=== PATIENT | male | born 1950 | race Caucasian/White ===

== ENCOUNTER 2020-10-10 13:30 | Emergency (ER) | payer OTHER, SELFPAY ==
[2020-10-10] VITALS (8 sets, daily range): BP systolic 112–132; BP diastolic 77–88; PULSE 60–76; RESP 16–22; TEMP 36.6; O2SAT 98–100; BMI 23.0
--- NOTE | 2020-10-10 13:54 | DI.RAD.S_ITS ---
PROCEDURE: XR CHEST 1V INDICATIONS: chest pain TECHNIQUE: One view of the chest was acquired. COMPARISON: None. FINDINGS: Surgical changes and devices: None. Lungs and pleura: Lungs are clear. No pleural effusions or pneumothorax. Mediastinum: Mediastinal contours appear normal. Heart size is normal. Bones and chest wall: No suspicious bony lesions. Overlying soft tissues appear unremarkable. IMPRESSION: No acute pulmonary process. Dictated by: Kandi Paez M.D. on 10/10/2020 at 14:55 Approved by: Kandi Paez M.D. on 10/10/2020 at 14:55
[2020-10-10 14:31] LABS: Add Manual Diff / Slide Review NO; Basophils Absolute Auto 0 /uL (0-100); Basophils Percent Auto 0.5 % (0-2); Eosinophils Absolute Auto 100 /uL (0-450); Eosinophils Percent Auto 1.3 % (2-4); Hematocrit 46.9 % (41-53); Hemoglobin 16.3 g/dL (13.5-17.5); Lymphocytes Absolute Auto 1000 /uL (1100-4500); Lymphocytes Percent Auto 13.5 % (25-40); Mean Corpuscular HGB Conc 34.7 % (30-36); Mean Corpuscular Hemoglobin 32.4 PG (26-34); Mean Corpuscular Volume 93.3 fL (80-100); Monocytes Absolute Auto 300 /uL (0-900); Monocytes Percent Auto 4.8 % (3-14); Neutrophils Absolute Auto 5800 /uL (1500-7000); Neutrophils Percent Auto 79.9 % (50-75); Platelet Count 254 X10^3/uL (150-400); Red Blood Cell Count 5.02 X10^6/uL (4.5-5.9); White Blood Cell Count 7.3 X10^3/uL (4.5-11.0)
[2020-10-10 14:38] LABS: Prothrombin Time 11.7 SECONDS (10.1-12.7)
[2020-10-10 14:40] LABS: PTT Partial Thromboplastin Tim 32 SECONDS (26.4-36.2)
[2020-10-10 14:44] LABS: Alanine Aminotransferase 17 IU/L (<50); Albumin 4.5 g/dL (3.5-5.0); Albumin Globulin Ratio 1.8 (1.0-2.8); Alkaline Phosphatase 57 U/L (38-126); Aspartate Aminotransferase 29 IU/L (17-59); BUN Creatinine Ratio 20.7 (6-22); Bilirubin Total 0.5 mg/dL (0.2-1.3); Blood Urea Nitrogen 19 mg/dL (9-20); Calcium 9.7 mg/dL (8.4-10.2); Carbon Dioxide 25 mmol/L (22-32); Chloride 104 mmol/L (98-107); Creatine Kinase 75 U/L (55-170); Estimated Glomerular Filt Rate > 60.0 mL/min (>60); Globulin 2.5 g/dL (1.7-4.1); Glucose 98 mg/dL (80-110); HEMOLYSIS 34 (0-50); Lipase 144 U/L (23-300); Sodium 138 mmol/L (137-145)
[2020-10-10 14:56] LABS: Troponin I < 0.012 ng/mL (0.01-0.034)
--- NOTE | 2020-10-10 15:02 | DI.CT.S_ITS ---
PROCEDURE: CT HEAD/BRAIN WO CON INDICATIONS: syncope, fall on face TECHNIQUE: Noncontrast 4.5 mm thick angled axial sections acquired from the foramen magnum to the vertex, with coronal and sagittal reformats. For radiation dose reduction, the following was used: automated exposure control, adjustment of mA and/or kV according to patient size. COMPARISON: [facility], CT, CT FACIAL BONES WO CON, 10/10/2020, 15:05. FINDINGS: Image quality: Excellent. CSF spaces: Basal cisterns are patent. No extra-axial fluid collections. The ventricles are symmetric in size and shape. Brain: No intracranial bleeds or masses. There is cerebral volume loss for age, with resultant ventricular and sulcal prominence. There are periventricular and deep white matter chronic small vessel ischemic changes. There is intracranial internal carotid artery atherosclerosis. Skull and face: Calvarium and visualized facial bones appear intact, without suspicious lesions. Sinuses: Visualized sinuses and mastoids are clear. IMPRESSION: 1. No acute intracranial process. 2. Mild atrophy and chronic microvascular ischemic changes. Dictated by: Kandi Paez M.D. on 10/10/2020 at 15:26 Approved by: Kandi Paez M.D. on 10/10/2020 at 15:27
--- NOTE | 2020-10-10 15:02 | DI.CT.S_ITS ---
PROCEDURE: CT FACIAL BONES WO CON INDICATIONS: syncope, fall on face TECHNIQUE: Noncontrast 2.5 mm thick axial images acquired from the mandible through the frontal sinuses, with coronal and sagittal reformatting. For radiation dose reduction, the following was used: automated exposure control, adjustment of mA and/or kV according to patient size. COMPARISON: [facility], CT, CT HEAD/BRAIN WO CON, 10/10/2020, 15:05. FINDINGS: Image quality: Excellent. Bones and teeth: Orbital mo are intact. Sinus mo show no fracture or deformity. Nasal bones and septum are intact. Visualized portions of the mandible demonstrate no fractures or subluxation. Zygomatic arches are intact. Pterygoid plates are intact. Visualized portions of the skull base and auditory canals are intact. Sinuses: Paranasal sinuses are aerated, without fluid levels, mucosal thickening, or mucoceles. Mastoid air cells are aerated. Soft tissues: No edema, masses, or fluid collections. No enlarged lymph nodes. No soft tissue lacerations or debris. Vascular: Visualized vascular structures appear normal in the absence of contrast. Bony vascular foramina and canals are intact. IMPRESSION: No visualized fracture. Dictated by: Kandi Paez M.D. on 10/10/2020 at 15:27 Approved by: Kandi Paez M.D. on 10/10/2020 at 15:28
--- NOTE | 2020-10-10 15:49 | ED.SYNCOPE ---
HPI - Syncope General Chief Complaint: Syncope Stated Complaint: [place] Time Seen by Provider: 10/10/20 15:48 Source: patient and family () Mode of arrival: Ambulatory Limitations: no limitations History of Present Illness HPI narrative: This is a 69-year-old male who was getting out of his vehicle when he was walking around the car as he was about to go up on the curb. He did not visualize the curb and tripped and fell directly on his face. Patient was not able to soften his fall with his hands. He fell directly on his knees and face. He states his tooth is ?legally?. Patient and his for both present. They were actively talking during the event. states he did have a loss of consciousness but was repetitive and seemed somewhat confused immediately afterwards. His mental status has been improved and he seems back to his normal self. Patient denies any significant neck or back pain. He had headache initially but that has resolved. He has not any vision changes. No nausea or vomiting. No chest pain or shortness of breath. He appreciates abrasions on both knees, his cheek as well some cuts to his lip. Patient has not had any bowel or bladder incontinence. No numbness tingling or weakness of his extremities. He states he had a head injury about 4 years ago, he was never evaluated for this but had persistent cognitive changes afterwards. He is supposed to see Neurology in follow-up. He does not take any medications regularly. He denies any prior surgeries besides hernia repair. No allergies to medications. No tobacco alcohol or illicit. He has not had any EtOH today. Patient lives at [place]. He is accompanied by his who is a dental hygienist. She states she will help him follow up with a dentist this weekend. He believes his tetanus is up-to-date, he is also due to have his COVID vaccination next Monday. They elect not to have his tetanus updated today and will touch base with his primary care to verify his tetanus status on Monday. Related Data Allergies Allergy/AdvReac Type Severity Reaction Status Date / Time No Known Drug Allergies Allergy Verified 10/10/20 14:55 Review of Systems Review of Systems ROS Unobtainable: All systems reviewed & are unremarkable except as noted in HPI and below Patient History Surgical History (Updated 10/10/20 @ 16:15 by Brandie Freeman DO) H/O hernia repair Social History Smoking Status: Never smoker Smoking Status: Never smoker Substance Use Type: does not use Exam Narrative Exam Narrative: GEN:Patient appears in mild distress. HEAD: No evidence of trauma, no raccoon/Dunham sign. NECK: Nontender, painless range of motion, trachea midline Negative Nexus criteria, there is no mild line tenderness, distracting injury, altered mental status, neuro deficit, recent EtOH. EYES: PERRLA, EOMI ENT: External inspection normal, trachea is midline, TM's are normal no hemotypanum, Nares are clear, no septal hematoma, patient has loose tooth at tooth #8 but does appear intact, airway is normal and with normal occlusion, No bony tenderness, patient also has multiple superficial lacerations to the left lip there is 1 laceration that is larger, and it does not appear to be through and, it does go just adjacent to the vermilion border but does not appear to cross it. These do not gape significantly when palpated. RESP: Chest is nontender and has symmetric movement, no ecchymosis, breath sounds are normal no crackles, wheezes or rales CVS: Heart sounds are normal, no murmur noted, No JVD. ABG/GI: Nontender, soft, normal bowel sounds, no distention, no organomegaly, pelvic rock is negative NEURO: Oriented AOx3, neuro is grossly intact, sensation and motor is normal all 4 extremities moving, cranial nerves II through XII are intact, GCS is 15 PSYCH: Normal mood and affect SKIN: Patient has abrasions bilateral knee, left hand and left cheek, warm and dry, no crepitus and without decubitus BACK: No CVA tenderness, no vertebral tenderness, no step-off's, no crepitus EXT: Atraumatic, hips are nontender, no pedal edema, normal color and temperature, normal range of motion of extremities with normal tendon exam, 2+ pulses in all four extremities Initial Vital Signs Initial Vital Signs: Vital Signs Temperature 97.8 F 10/10/20 13:40 Pulse Rate 65 10/10/20 13:40 Respiratory Rate 16 10/10/20 13:40 Blood Pressure 132/77 10/10/20 13:40 Pulse Oximetry 98 10/10/20 13:40 Scores GCS Collins coma scale eye opening: Spontaneous Collins coma scale verbal response: Orientated Collins coma scale motor response: Obey commands Finley coma scale total score: 15 Course Orders Ordered: ED Orders 10/10/20 13:54 XR chest 1V Stat EKG-12 Lead Stat 10/10/20 14:00 Complete Blood Count AUTO DIFF Stat Comprehensive Metabolic Panel Stat Lipase Stat Partial Thromboplastin Time Stat Prothrombin Time INR Stat Troponin & CK Cardiac Panel Stat 10/10/20 15:02 CT facial bones wo con Stat CT head/brain wo con Stat Vital Signs Vital signs: Vital Signs - 8 hr 10/10/20 13:40 10/10/20 13:53 10/10/20 14:00 Temperature 97.8 F Pulse Rate 65 76 66 Respiratory Rate 16 21 19 Blood Pressure 132/77 Pulse Oximetry 98 98 98 10/10/20 14:30 10/10/20 14:56 10/10/20 15:00 Temperature Pulse Rate 60 62 64 Respiratory Rate 16 19 22 Blood Pressure 114/88 112/84 Pulse Oximetry 98 99 99 10/10/20 15:30 10/10/20 16:00 Temperature Pulse Rate 61 72 Respiratory Rate 19 18 Blood Pressure Pulse Oximetry 100 99 MDM - Syncope Lab Data Attestation: I reviewed the patient's lab results. Result diagrams: 10/10/20 14:00 10/10/20 14:00 Labs: Lab Results 10/10/20 10/10/20 10/10/20 Range/Units 14:00 14:00 14:00 WBC 7.3 (4.5-11.0) X10^3/uL RBC 5.02 (4.5-5.9) X10^6/uL Hgb 16.3 (13.5-17.5) g/dL Hct 46.9 (41-53) % MCV 93.3 (80-100) fL MCH 32.4 (26-34) PG MCHC 34.7 (30-36) % RDW 13.0 (11.6-14.8) % Plt Count 254 (150-400) X10^3/uL Neut % (Auto) 79.9 H (50-75) % Lymph % (Auto) 13.5 L (25-40) % Sumner % (Auto) 4.8 (3-14) % Eos % (Auto) 1.3 L (2-4) % Baso % (Auto) 0.5 (0-2) % Neut # (Auto) 5800 (2663-6136) /uL Lymph # (Auto) 1000 L (7658-8882) /uL Sumner # (Auto) 300 (0-900) /uL Eos # (Auto) 100 (0-450) /uL Baso # (Auto) 0 (0-100) /uL PT 11.7 (10.1-12.7) SECONDS INR 1.0 (0.9-1.3) APTT 32 (26.4-36.2) SECONDS Sodium 138 (137-145) mmol/L Potassium 4.0 (3.4-5.1) mmol/L Chloride 104 (98-107) mmol/L Carbon Dioxide 25 (22-32) mmol/L BUN 19 (9-20) mg/dL Creatinine 0.92 (0.66-1.25) mg/dL Estimated GFR > 60.0 (>60) mL/min BUN/Creatinine Ratio 20.7 (6-22) Glucose 98 (80-110) mg/dL Calcium 9.7 (8.4-10.2) mg/dL Total Bilirubin 0.5 (0.2-1.3) mg/dL AST 29 (17-59) IU/L ALT 17 (<50) IU/L Alkaline Phosphatase 57 (38-126) U/L Total Creatine Kinase 75 (55-170) U/L CK-MB (CK-2) TNP CK-MB (CK-2) Rel Index TNP Troponin I < 0.012 (0.01-0.034) ng/mL Total Protein 7.0 (6.3-8.2) g/dL Albumin 4.5 (3.5-5.0) g/dL Globulin 2.5 (1.7-4.1) g/dL Albumin/Globulin Ratio 1.8 (1.0-2.8) Lipase 144 (23-300) U/L Imaging Data CT scan - head: Radiologist's Impression: [address] [id number] Scan ReportSigned Patient: Dilip Perez#: [id number]: 1950cct:[id number]/Sex: 69 / MDate of Service: 10/10/20Loc: EDAccession Number: [id number] Procedure: CT head/brain wo con Ordering Provider: Brandie Freeman D.O. PROCEDURE: CT HEAD/BRAIN WO CON INDICATIONS: syncope, fall on face TECHNIQUE: Noncontrast 4.5 mm thick angled axial sections acquired from the foramen magnum to the vertex, with coronal and sagittal reformats. For radiation dose reduction, the following was used: automated exposure control, adjustment of mA and/or kV according to patient size. COMPARISON: [facility], CT, CT FACIAL BONES WO CON, 10/10/2020, 15:05. FINDINGS: Image quality: Excellent. CSF spaces: Basal cisterns are patent. No extra-axial fluid collections. The ventricles are symmetric in size and shape. Brain: No intracranial bleeds or masses. There is cerebral volume loss for age, with resultant ventricular and sulcal prominence. There are periventricular and deep white matter chronic small vessel ischemic changes. There is intracranial internal carotid artery atherosclerosis. Skull and face: Calvarium and visualized facial bones appear intact, without suspicious lesions. Sinuses: Visualized sinuses and mastoids are clear. IMPRESSION: 1. No acute intracranial process. 2. Mild atrophy and chronic microvascular ischemic changes. Dictated by: Kandi Paez M.D. on 10/10/2020 at 15:26 Approved by: Kandi Paez M.D. on 10/10/2020 at 15:[address]: Radiologist's Impression: Dilip Perez 69 M [address] [id number] Scan ReportSigned Patient: Dilip Perez#: [id number]: [id number]:[id number]/Sex: 69 / MDate of Service: 10/10/20Loc: EDAccession Number: [id number] Procedure: CT facial bones wo con Ordering Provider: Brandie Freeman D.O. PROCEDURE: CT FACIAL BONES WO CON INDICATIONS: syncope, fall on face TECHNIQUE: Noncontrast 2.5 mm thick axial images acquired from the mandible through the frontal sinuses, with coronal and sagittal reformatting. For radiation dose reduction, the following was used: automated exposure control, adjustment of mA and/or kV according to patient size. COMPARISON: [facility], CT, CT HEAD/BRAIN WO CON, 10/10/2020, 15:05. FINDINGS: Image quality: Excellent. Bones and teeth: Orbital mo are intact. Sinus mo show no fracture or deformity. Nasal bones and septum are intact. Visualized portions of the mandible demonstrate no fractures or subluxation. Zygomatic arches are intact. Pterygoid plates are intact. Visualized portions of the skull base and auditory canals are intact. Sinuses: Paranasal sinuses are aerated, without fluid levels, mucosal thickening, or mucoceles. Mastoid air cells are aerated. Soft tissues: No edema, masses, or fluid collections. No enlarged lymph nodes. No soft tissue lacerations or debris. Vascular: Visualized vascular structures appear normal in the absence of contrast. Bony vascular foramina and canals are intact. IMPRESSION: No visualized fracture. Dictated by: Kandi Paez M.D. on 10/10/2020 at 15:27 Approved by: Kandi Paez M.D. on 10/10/2020 at 15:28 Chest x-ray: Radiologist's Impression: Dilip Perez M [address] Scan ReportSigned Patient: Dilip Perez#: [id number]: 1950cct:[id number]/Sex: 69 / MDate of Service: 10/10/20Loc: EDAccession Number: [id number] Procedure: CT facial bones wo con Ordering Provider: Brandie Freeman D.O. PROCEDURE: CT FACIAL BONES WO CON INDICATIONS: syncope, fall on face TECHNIQUE: Noncontrast 2.5 mm thick axial images acquired from the mandible through the frontal sinuses, with coronal and sagittal reformatting. For radiation dose reduction, the following was used: automated exposure control, adjustment of mA and/or kV according to patient size. COMPARISON: [facility], CT, CT HEAD/BRAIN WO CON, 10/10/2020, 15:05. FINDINGS: Image quality: Excellent. Bones and teeth: Orbital mo are intact. Sinus mo show no fracture or deformity. Nasal bones and septum are intact. Visualized portions of the mandible demonstrate no fractures or subluxation. Zygomatic arches are intact. Pterygoid plates are intact. Visualized portions of the skull base and auditory canals are intact. Sinuses: Paranasal sinuses are aerated, without fluid levels, mucosal thickening, or mucoceles. Mastoid air cells are aerated. Soft tissues: No edema, masses, or fluid collections. No enlarged lymph nodes. No soft tissue lacerations or debris. Vascular: Visualized vascular structures appear normal in the absence of contrast. Bony vascular foramina and canals are intact. IMPRESSION: No visualized fracture. Dictated by: Kandi Paez M.D. on 10/10/2020 at 15:27 Approved by: Kandi Paez M.D. on 10/10/2020 at 15:28 ECG Data Attestation: I personally reviewed and interpreted this ECG as follows: Prior ECG tracings: not available for review Interpretation: Sinus rhythm rate of 70 P are interval 172 QRS 86 and QTC of 438. No acute ST changes appreciated. MDM Narrative Medical decision making narrative: This is a 69-year-old male comes to the emergency department with mechanical fall, patient has dental injury, lip laceration and concussive type symptoms. Patient's C-spine clinically cleared here in the department. Patient did have lip laceration and concern for possible facial fractures so CT imaging was obtained which is negative, CT head was also negative. Patient is not anticoagulated. Patient has been improving here in the department. He does have unstable 2, his is a dental hygienist and can help him follow-up short-term. Lacerations do not appear to require suture at this time and will likely heal over the next several days to week or minimal issue. Return precautions were discussed. Discharge Plan Departure Patient Disposition: Home Clinical Impression: Concussion, Dental injury, Laceration of lip, Abrasion of both knees Instructions: DI for Concussion Activity Restrictions/Additional Instructions: Follow-up with a dentist next 24-48 hours. I would recommend calling today to set up follow-up. Your tooth does appear loose and needs evaluation. I recommend either clears or very soft pureed foods until you see the dentist. Your lip laceration should heal over the next 4-5 days. You may take Tylenol and/or ibuprofen as needed for pain. Return for fevers, severe headaches, altered mental status, new vision changes, persistent vomiting, new neck or back pain, numbness tingling or weakness, new chest pain shortness of breath, syncope or other new or concerning symptoms.
== END 2020-10-10 16:25 | disposition home or self-care (01) ==
PROVIDERS: Emergency Provider Emergency Medicine
DX: S06.0X9A Concussion with loss of consciousness of unspecified duration, initial encounter (principal); S09.93XA Unspecified injury of face, initial encounter; S01.511A Laceration without foreign body of lip, initial encounter; S80.211A Abrasion, right knee, initial encounter; S80.212A Abrasion, left knee, initial encounter; W01.0XXA Fall on same level from slipping, tripping and stumbling without subsequent striking against object, initial encounter
CPT/HCPCS: 36415; 70450; 70486; 71045; 80053; 82550; 83690; 84484; 85025; 85610; 85730; 93005; 99284